=== PATIENT | male | born 1980 | race Caucasian/White ===

== ENCOUNTER 2018-01-02 08:14 | Emergency (ER) | payer OTHER ==
[2018-01-02 08:20] VITALS: BP 151/95; PULSE 80; TEMP 98; BMI 42.5
[2018-01-02] MEDS ORDERED: ERYTHROMYCIN 0.5% OPHTHALMIC OINTMENT 3.5 GM TUBE OS ONE (08:58)
--- NOTE | 2018-01-02 09:04 | PDOC ---
History of Present Illness - General Chief Complaint: Eye Problem Stated Complaint: EYE PROBLEM Time Seen by Provider: 01/02/18 08:41 History Source: Patient Exam Limitations: No Limitations - History of Present Illness Initial Comments: 01/02/18 08:59 came for eval of right eye pain and possible FB./ Was helping clean house and felt dust/ debris go into eyes. Washed out but feels may have particle retained Timing/Duration: unsure Severity: mild Associated Symptoms: reports: denies symptoms Past History - Travel Traveled outside of the country in the last 30 days: No Close contact w/someone who was outside of country & ill: No - Past Medical History Allergies/Adverse Reactions: Allergies Allergy/AdvReac Type Severity Reaction Status Date / Time No Known Allergies Allergy Verified 01/02/18 08:17 Home Medications: Ambulatory Orders Erythromycin 0.5% Eye Ointment [Erythromycin 0.5% Eye Ointment -] 1 applic OU TID 5 Days #1 tube 01/02/18 COPD: No DVT: No - Immunization History Td Vaccination: No Immunization Up to Date: Yes - Suicide/Smoking/Psychosocial Hx Smoking Status: No Smoking History: Never smoked Have you smoked in the past 12 months: No Number of Cigarettes Smoked Daily: 0 Cigars Per Day: 0 Information on smoking cessation initiated: No Hx Alcohol Use: No Drug/Substance Use Hx: No Substance Use Type: None Review of Systems - Review of Systems Able to Perform ROS?: Yes Is the patient limited Russian proficient: Yes Constitutional: Yes: See HPI. No: Symptoms Reported, Malaise HEENTM: Yes: Symptoms Reported, See HPI, Eye Pain, Tearing. No: Blurred Vision , Recent change in vision, Ear Pain Respiratory: Yes: See HPI. No: Symptoms reported Musculoskeletal: Yes: Symptoms Reported All Other Systems: Reviewed and Negative *Physical Exam - Vital Signs Last Vital Signs Temp Pulse Resp BP Pulse Ox 98.0 F 80 18 151/95 100 01/02/18 08:17 01/02/18 08:17 01/02/18 08:17 01/02/18 08:17 01/02/18 08:17 - Physical Exam General Appearance: Yes: Nourished, Appropriately Dressed, Apparent Distress HEENT: positive: ALEXUS, Normal ENT Inspection, TMs Normal, Pharynx Normal, Photophobia, Other Neck: positive: Supple. negative: Tender, Lymphadenopathy (R), Lymphadenopathy (L) (mild) Respiratory/Chest: positive: Lungs Clear Gastrointestinal/Abdominal: positive: Soft Musculoskeletal: positive: Normal Inspection Extremity: positive: Normal Capillary Refill, Normal Inspection Integumentary: positive: Normal Color, Dry, Warm, Pale Neurologic: positive: residence supervisor II-XII NML intact, Fully Oriented, Alert, Normal Mood/ Affect, Normal Response, Motor Strength 5/5 Medical Decision Making - Medical Decision Making 01/02/18 09:18 corneal abrasion, will treat with erythromycin ointment and follow-up with ophthalmology tomorrow *DC/Admit/Observation/Transfer Diagnosis at time of Disposition: Corneal abrasion Qualifiers: Encounter type: initial encounter Laterality: right Qualified Code(s): S05.01XA - Injury of conjunctiva and corneal abrasion without foreign body, right eye, initial encounter - Discharge Dispostion Disposition: HOME Condition at time of disposition: Stable Admit: No - Prescriptions Prescriptions: Erythromycin 0.5% Eye Ointment [Erythromycin 0.5% Eye Ointment -] 1 applic OU TID 5 Days #1 tube - Referrals Referrals: Nilo Cherry MD [Staff Physician] - - Patient Instructions Printed Discharge Instructions: DI for Corneal Abrasion Additional Instructions: Rest, avoid rubbing eyes Wash hands, use eye drops as directed, wash hands after use May use eye lubricating drops as often as needed erythromycin ointment, one thin film 3 times a day for 5 days Tylenol or ibuprofen for pain relief Avoid contact with others until redness and discharge is gone from eyes. Followup with ophthalmology in one to 2 days for thorough exam Return to emergency department for worsened pain, swelling, vision problems. - Post Discharge Activity Forms/Work/School Notes: Back to Work
[2018-01-02] MEDS ORDERED: DIPHTH,PERTUSS(ACELL),TET 0.5 ML DISP.SYRIN IM ONE (09:07)
[2018-01-02] MEDS ORDERED: ERYTHROMYCIN 0.5% OPHTHALMIC OINTMENT 3.5 GM TUBE ONE (09:08)
== END 2018-01-02 09:15 | disposition home or self-care (01) ==
LOC: JERFT 08:14
PROC: 3E0234Z Introduction of Serum, Toxoid and Vaccine into Muscle, Percutaneous Approach (ICD-10-PCS; principal; 2018-01-02)
DX: S05.01XA Injury of conjunctiva and corneal abrasion without foreign body, right eye, initial encounter (principal); X58.XXXA Exposure to other specified factors, initial encounter; Y93.E9 Activity, other interior property and clothing maintenance; Y92.038 Other place in apartment as the place of occurrence of the external cause
CPT/HCPCS: 90715; 99281-25

== ENCOUNTER 2019-11-06 13:17 | Emergency (ER) | payer BC, OTHER ==
[2019-11-06 13:35] VITALS: BMI 45.0
[2019-11-06] MEDS ORDERED: ONDANSETRON 4 MG/2 ML VIAL IVPB ONE (14:05)
[2019-11-06] MEDS ORDERED: ACETAMINOPHEN 325 MG TABLET (FP) PO ONE (14:05)
[2019-11-06] MEDS ORDERED: SODIUM CHLORIDE 1,000 ML IV STA (14:05)
[2019-11-06] MEDS ORDERED: KETOROLAC TROMETHAMINE 30 MG/1 ML VIAL IVPUSH ONE (14:05)
--- NOTE | 2019-11-06 14:13 | PDOC ---
History of Present Illness - General Chief Complaint: Respiratory Stated Complaint: BODY ACHES CHILLS NAUSEA COUGH Time Seen by Provider: 11/06/19 13:22 History Source: Patient Exam Limitations: No Limitations - History of Present Illness Initial Comments: 11/06/19 14:08 CHIEF COMPLAINT: Fever, chills, body aches since Monday HISTORY OF PRESENT ILLNESS: 39-year-old man with a history of diverticulitis and morbid obesity. Patient presents complaining of onset on Monday of a mild scratchy throat. Yesterday the symptoms got worse with diffuse bone pain and joint pain and muscle pain. He also developed fever and chills. He has nausea and dry heaving but no vomiting. No diarrhea. He also has a dry, nonproductive cough. In addition, he has a headache, worse when coughing. No neck pain or photophobia. There is no skin rash. There is no purulent sputum. There is no shortness of breath. There is no wheezing. REVIEW OF SYSTEMS: GENERAL/CONSTITUTIONAL: Positive fever and chills. Positive weakness. No weight change. Most recent weight was 368 pounds, approximately 4 weeks ago. HEAD, EYES, EARS, NOSE AND THROAT: No change in vision. No ear pain. Positive mild sore throat. CARDIOVASCULAR: No chest pain or shortness of breath. RESPIRATORY: Positive dry cough, nonproductive. No wheezing or hemoptysis. GASTROINTESTINAL: Positive nausea, no vomiting. No diarrhea. No abdominal pain. GENITOURINARY: No dysuria, frequency, or change in urination. MUSCULOSKELETAL: Positive diffuse joint and muscle pain. No swelling. No neck pain. SKIN AND BREASTS: No rash or easy bruising. NEUROLOGIC: Positive headache, worse with coughing. No vertigo or loss of consciousness. No change in sensation. No neck pain. No photophobia. PSYCHIATRIC: No depression or anxiety. ENDOCRINE: No increased thirst. No abnormal weight change. HEMATOLOGIC/LYMPHATIC: No anemia, easy bleeding, or history of blood clots. ALLERGIC/IMMUNOLOGIC: No hives or skin allergy. No latex allergy. Past History - Past Medical History Allergies/Adverse Reactions: Allergies Allergy/AdvReac Type Severity Reaction Status Date / Time almond Allergy Verified 11/06/19 13:19 berry Allergy Verified 11/06/19 13:19 hazelnut Allergy Verified 11/06/19 13:19 lactose Allergy Verified 11/06/19 13:19 Home Medications: Ambulatory Orders Naproxen [Naprosyn -] 500 mg PO BID PRN #14 tablet 11/06/19 Ondansetron [Ondansetron Odt] 8 mg PO Q6H PRN #12 tab.rapdis 11/06/19 Anemia: No Asthma: No Cancer: No Cardiac Disorders: No CVA: No COPD: No CHF: No DVT: No Dementia: No Diabetes: No GI Disorders: Yes (Positive hospitalization for diverticulitis 2017) Disorders: No HTN: Yes (no medication) Hypercholesterolemia: Yes (no medication) Liver Disease: No Seizures: No Thyroid Disease: No - Immunization History Td Vaccination: No Immunization Up to Date: Yes - Psycho Social/Smoking Cessation Hx Smoking Status: No Smoking History: Never smoked Have you smoked in the past 12 months: No Number of Cigarettes Smoked Daily: 0 Cigars Per Day: 0 Hx Alcohol Use: No Drug/Substance Use Hx: No Substance Use Type: None Hx Substance Use Treatment: No *Physical Exam - Vital Signs Last Vital Signs Temp Pulse Resp BP Pulse Ox 99.9 F H 108 H 20 140/97 96 11/06/19 13:18 11/06/19 13:18 11/06/19 13:18 11/06/19 13:18 11/06/19 13:18 - Physical Exam 11/06/19 14:12 GENERAL: The patient is awake, alert, and fully oriented, in no acute distress. He is morbidly obese. There is no cough noted. There is no respiratory distress noted. HEAD: Normal with no signs of trauma. EYES: Pupils equal, round and reactive to light, extraocular movements intact, sclera anicteric, conjunctiva clear. ENT: Ears normal, nares patent, oropharynx clear without exudates. Moist mucous membranes. NECK: Normal range of motion, supple without lymphadenopathy, JVD, or masses. LUNGS: Breath sounds equal, clear to auscultation bilaterally. No wheezes, and no crackles. HEART: Regular rate and rhythm, normal S1 and S2 without murmur, rub or gallop. ABDOMEN: Soft, nontender, normoactive bowel sounds. No guarding, no rebound. No masses. EXTREMITIES: Normal range of motion, no edema. No clubbing or cyanosis. No cords, erythema, or tenderness. NEUROLOGICAL: Cranial nerves II through XII grossly intact. Normal speech, normal gait. PSYCH: Normal mood, normal affect. SKIN: Warm, Dry, normal turgor, no rashes or lesions noted. ED Treatment Course - LABORATORY CBC & Chemistry Diagram: 11/06/19 14:19 11/06/19 14:19 - RADIOLOGY Radiology Studies Ordered: Category Date Time Status CHEST PA & LAT [RAD] Stat Radiology 11/06/19 14:04 Ordered Medical Decision Making - Medical Decision Making 11/06/19 15:31 39-year-old man with history of obesity presents complaining of 2 days of symptoms of sore throat followed by fever and body aches. Currently he has some headache, especially with cough, the cough is occasional dry cough, no sputum. He also has nasal congestion and a mild sore throat. There is no photophobia or neck pain. There is nausea but no vomiting. There is no diarrhea. On examination, he has mild nasal congestion, his throat is clear, and lungs are clear. Abdomen is fully benign. Chest x-ray PA lateral shows no acute infiltrates. Laboratory studies were reviewed. White blood cell count is normal. Neutrophils are normal. Hemoglobin is normal. Sodium is mildly low at 133, and liver function tests are mildly elevated. Findings are consistent with acute viral infection. There is no evidence for any bacterial infection. Flu swab is negative. Patient likely has a another respiratory or gastrointestinal virus. He is stable for discharge after 1 L of IV hydration. His nausea has resolved. Laboratory Results - last 24 hr 11/06/19 11/06/19 11/06/19 14:18 14:19 14:19 WBC 7.3 RBC 5.09 Hgb 14.7 Hct 44.3 MCV 87.0 MCH 29.0 MCHC 33.3 RDW 13.0 Plt Count 344 MPV 7.1 L Absolute Neuts (auto) 4.8 Neutrophils % 66.7 Lymphocytes % 10.8 D Monocytes % 16.6 H Eosinophils % 2.2 Basophils % 3.7 H D Sodium 133 L Potassium 4.3 Chloride 105 Carbon Dioxide 20 L Anion Gap 8 BUN 11.0 Creatinine 0.9 Est GFR (CKD-EPI)AfAm 125.13 Est GFR (CKD-EPI)NonAf 107.97 Random Glucose 90 Calcium 8.5 Total Bilirubin 0.6 AST 67 H ALT 102 H Alkaline Phosphatase 73 Total Protein 7.1 Albumin 3.8 Influenza A (Rapid) Negative Influenza B (Rapid) Negative Discharge - Discharge Information Problems reviewed: Yes Clinical Impression/Diagnosis: Viral infection Condition: Stable Disposition: HOME - Admission No - Additional Discharge Information Prescriptions: Naproxen [Naprosyn -] 500 mg PO BID PRN #14 tablet PRN Reason: pain and fever Ondansetron [Ondansetron Odt] 8 mg PO Q6H PRN #12 tab.rapdis PRN Reason: nausea and vomiting - Follow up/Referral - Patient Discharge Instructions Patient Printed Discharge Instructions: DI for Viral Upper Respiratory Infection -- Adult Additional Instructions: Today you were evaluated for fever and body aches. Your diagnosis is a viral infection. The flu test was negative. You are advised to drink plenty of fluids, rest at home, take Naprosyn 500 mg twice a day for pain and fever, take Zofran 8 mg ODT every 6 hours as needed for nausea or vomiting. You may also take Tylenol every 6 hours, 1000 mg in between your doses of Naprosyn. Follow- up with your primary care physician. Return to the emergency department for any severe or progressive symptoms. - Post Discharge Activity Work/Back to School Note: Back to Work
[2019-11-06] MEDS ORDERED: ACETAMINOPHEN 325 MG TABLET (FP) ONE (14:15)
[2019-11-06] MEDS ORDERED: KETOROLAC TROMETHAMINE 30 MG/1 ML VIAL ONE (14:16)
[2019-11-06] MEDS ORDERED: ONDANSETRON 4 MG/2 ML VIAL ONE (14:16)
[2019-11-06 14:22] LABS: BASO % 3.7 % (0-2.0); EOS % 2.2 % (0-4.5); HEMATOCRIT 44.3 % (35.4-49); HEMOGLOBIN 14.7 GM/dl (11.7-16.9); LYMPH % 10.8 % (8-40); MCHC 33.3 g/dl (32.0-35.9); MEAN PLT VOLUME 7.1 fl (7.5-11.1); MONO % 16.6 % (3.8-10.2); NEUT % 66.7 % (42.8-82.8); PLATELET COUNT 344 K/MM3 (134-434); RBC 5.09 M/mm3 (4.00-5.60); WHITE BLOOD COUNT 7.3 K/mm3 (4.0-10.8)
[2019-11-06 14:47] LABS: ALBUMIN 3.8 g/dl (3.4-5.0); BILIRUBIN,TOTAL 0.6 mg/dl (0.2-1); CALCIUM 8.5 mg/dl (8.5-10); CREATININE 0.9 mg/dl (0.55-1.3); POTASSIUM 4.3 mmol/L (3.5-5.1); TOT PROT 7.1 g/dl (6.4-8.2)
[2019-11-06 16:00] VITALS: BP 125/85; PULSE 96; TEMP 100.2
== END 2019-11-06 16:08 | disposition home or self-care (01) ==
LOC: FER 13:17
PROC: 3E0333Z Introduction of Anti-inflammatory into Peripheral Vein, Percutaneous Approach (ICD-10-PCS; principal; 2019-11-06)
PROC: 3E033GC Introduction of Other Therapeutic Substance into Peripheral Vein, Percutaneous Approach (ICD-10-PCS; 2019-11-06)
DX: B34.9 Viral infection, unspecified (principal); Z91.018 Allergy to other foods; Z91.011 Allergy to milk products
CPT/HCPCS: 36415; 71046-TC-FY; 80053; 85025; 87804; 99283-25; J7030

== ENCOUNTER 2023-03-27 10:23 | Emergency (ER) | payer BC, OTHER ==
[2023-03-27 10:33] VITALS: BP 137/102; PULSE 84; RESP 18; TEMP 99.4; BMI 42.5
[2023-03-27] MEDS ORDERED: IBUPROFEN 600 MG TABLET (FP) PO ONE ×2 (11:32→11:33)
== END 2023-03-27 11:40 | disposition home or self-care (01) ==
LOC: FER 10:23
DX: S92.415A Nondisplaced fracture of proximal phalanx of left great toe, initial encounter for closed fracture (principal); X50.0XXA Overexertion from strenuous movement or load, initial encounter
CPT/HCPCS: 73610-TC-LT-FY; 73630-TC-LT; 99283-25